=== PATIENT | male | born 1995 | race Caucasian/White ===

== ENCOUNTER 2017-11-14 19:52 | Emergency (ER) ==
[2017-11-14 19:53] VITALS: BMI 18.9
[2017-11-14] MEDS ORDERED: DILAUDID 0.5 MG/0.5 ML SYRINGE IVP STA (19:55)
[2017-11-14] MEDS ORDERED: ZOFRAN 4 MG/2 ML IVP STA (19:56)
--- NOTE | 2017-11-14 20:10 | ED.PDOC ---
General ED Provider: Dr. EVITA NO-ER Chief Complaint: Abdominal Pain Stated Complaint: im hurting--for one month Time Seen by Physician: 19:55 Mode of Arrival: Walk-In Information Source: Patient Exam Limitations: No limitations Primary Care Provider: MIKE RAMIREZ Nursing and Triage Documentation Reviewed and Agree: Yes Does patient meet sepsis criteria?: No System Inflammatory Response Syndrome: Not Applicable Sepsis Protocol: For patient's 13 years and over: Temp is 96.8 and below OR 101 and greater Pulse >90 BPM Resp >20/minute Acutely Altered Mental Status Are patient's symptoms suggestive of a new infection, such as: -Pneumonia -Skin, Soft Tissue -Endocarditis -UTI -Bone, Joint Infection -Implantable Device -Acute Abdominal Infection -Wound Infection -Meningitis -Blood Stream Catheter Infection -Unknown GI Complaint Exam - Abdominal Pain Complaint/Exam Onset: Gradual Duration: 4 weeks Symptoms Are: Still present Timing: Constant Initial Severity: Mild Current Severity: Mild Location of Pain: RUQ, RLQ Character: Reports: Dull, Aching, Cramping Aggravating: Reports: None Associated Signs and Symptoms: Reports: Nausea Abdominal Findings: Present: None Differential Diagnoses: Appendicitis, Bowel Obstruction, Constipation, Pancreatitis, GB Review of Systems - Review Of Systems Constitutional: Reports: No symptoms Eyes: Reports: No symptoms Ears, Nose, Mouth, Throat: Reports: No symptoms Respiratory: Reports: No symptoms Cardiac: Reports: No symptoms GI: Reports: Abdominal pain, Nausea : Reports: No symptoms Musculoskeletal: Reports: No symptoms Skin: Reports: No symptoms Neurological: Reports: No symptoms Endocrine: Reports: No symptoms Hematologic/Lymphatic: Reports: No symptoms All Other Systems: Reviewed and Negative Past Medical History - Past Medical History Previously Healthy: No Endocrine: Reports: None Cardiovascular: Reports: None Respiratory: Reports: None Hematological: Reports: None Gastrointestinal: Reports: None Genitourinary: Reports: None Neuro/Psych: Reports: None Musculoskeletal: Reports: Joint Pain Cancer: Reports: None Other Pertinent Past Medical History: compound fracture left wrist- fell into basement(foundation) - Surgical History General Surgical History: Reports: Orthopedic (left wrist fx with internal fixation) - Family History Family History: Reports: Unknown - Social History Smoking Status: Never smoker Hx Substance Use: No Alcohol Screening: None - Immunizations Tetanus Shot up to Date: Yes Physical Exam - Physical Exam Appearance: Well-appearing Pain Distress: Mild Eyes: [facility] ENT: Ears normal Neck: Supple Respiratory: Airway patent, Breath sounds clear, Breath sounds equal, Respirations nonlabored Cardiovascular: RRR, Pulses normal, No rub, No murmur GI/: Soft, No masses, Bowel sounds normal, No Organomegaly, Tender Musculoskeletal: Normal strength, ROM intact, No edema, No calf tenderness Skin: Warm Neurological: Sensation intact, Motor intact, Reflexes intact, Cranial nerves intact, Alert, Oriented Psychiatric: Affect appropriate, Mood appropriate, Anxious Interpretation - Radiology Interpretation Radiology Interpretation By: Radiologist Radiology Results: Negative Exam Interpreted: CT Scan Re-Evaluation - Re-Evaluation Time of Re-Evaluation: 21:41 Status: Improved Vital Signs Stable: Yes Pain Level: 0 Appearance: NAD Lungs: Clear Skin: Warm and Dry Neuro: Alert and Oriented X3 CV: RRR Critical Care Note - Critical Care Note Total Time (mins): 0 Course - Course Hematology/Chemistry: 11/14/17 20:15 11/14/17 20:15 Orders, Labs, Meds: Lab Review 11/14/17 11/14/17 11/14/17 19:55 20:15 20:15 WBC 6.44 RBC 5.12 Hgb 15.8 Hct 46.3 MCV 90.4 MCH 30.9 MCHC 34.1 RDW Coeff of Blaire 12.6 Plt Count 185 Immature Gran % (Auto) 0.2 Neut % (Auto) 39.8 Lymph % (Auto) 45.2 [place] % (Auto) 9.9 Eos % (Auto) 4.3 Baso % (Auto) 0.6 Immature Gran # (Auto) 0.0 Neut # (Auto) 2.6 Lymph # (Auto) 2.9 [place] # (Auto) 0.6 Eos # (Auto) 0.3 Baso # (Auto) 0.0 ESR 2 Sodium 141 Potassium 4.1 Chloride 106 Carbon Dioxide 27 Anion Gap 12.1 BUN 15 Creatinine 0.99 Estimated GFR (MDRD) 96.00 BUN/Creatinine Ratio 15.15 Glucose 107 H Calcium 10.2 Total Bilirubin 1.5 H AST 16 ALT 12 Alkaline Phosphatase 77 Total Protein 7.7 Albumin 4.6 Globulin 3.1 Albumin/Globulin Ratio 1.48 Amylase 70 Lipase 17 Urine Color Yellow Urine Clarity Clear Urine pH 7.5 Ur Specific [place] 1.020 Urine Protein Negative Urine Glucose (UA) Negative Urine Ketones Negative Urine Blood Negative Urine Nitrite Negative Urine Bilirubin Negative Urine Urobilinogen 0.2 Ur Leukocyte Esterase Negative Orders Category Date Time Status NPO REMINDER: IMAGING ONCE CARE 11/14/17 19:56 Completed IV [ED IV/MEDIPORT/POWERPORT] .ONCE EMERGENCY 11/14/17 19:55 Active AMYLASE Stat LAB 11/14/17 20:15 Completed CBC W/ AUTO DIFF Stat LAB 11/14/17 20:15 Completed COMPREHENSIVE METABOLIC PANEL Stat LAB 11/14/17 20:15 Completed ESR Stat LAB 11/14/17 20:15 Completed LIPASE Stat LAB 11/14/17 20:15 Completed URINALYSIS C & S IF INDICATED Stat LAB 11/14/17 19:55 Completed 0.9 % Sodium Chloride [Saline Flush] MEDS 11/14/17 19:55 Ordered 1 syr IVF PRN PRN Hydromorphone HCl [Dilaudid] MEDS 11/14/17 19:55 Discontinued 1 mg IVP ONCE STA Ondansetron HCl/Pf [Zofran 4 mg/2 ml] MEDS 11/14/17 19:56 Discontinued [address] ONCE [address]A CT ABDOMEN/PELVIS W/WO CONTRAS Stat RADS 11/14/17 19:56 Completed Medications Generic Name Dose Route Start Last Admin Trade Name Freq PRN Reason Stop Dose Admin Sodium Chloride 1 syr 11/14/17 19:55 11/14/17 20:45 Saline Flush IVF 1 syr PRN PRN Administration To flush IV Discontinued Medications Generic Name Dose Route Start Last Admin Trade Name Freq PRN Reason Stop Dose Admin Hydromorphone HCl 1 mg 11/14/17 19:55 11/14/17 20:39 Dilaudid IVP 11/14/17 19:56 1 mg ONCE STA Administration Ondansetron HCl 4 mg 11/14/17 19:56 11/14/17 20:38 Zofran 4 Mg/2 Ml IVP 11/14/17 19:57 4 mg ONCE STA Administration Vital Signs: Temp Pulse Resp BP Pulse Ox 11/14/17 19:55 98.1 F 76 20 117/72 99 Departure - Departure Time of Disposition: 21:41 Disposition: HOME SELF-CARE Discharge Problem: Abdominal pain Instructions: Abdominal Pain (ED) Condition: Good Pt referred to PMD for follow-up: Yes IPMP verified?: No Additional Instructions: librax q 6hrs prn pain #10---zofran 4mg q 4hrs prn #10 for nausea--talk to dr ramirez about gb xrays--low fat diet Allergies/Adverse Reactions: Allergies No Known Allergies Allergy (Verified 11/14/17 20:07) Home Medications: Ambulatory Orders Ibuprofen [Motrin] 600 mg PO Q6H PRN #30 tablet 07/13/15 Pantoprazole Sodium [Protonix] 40 mg PO DAILY 11/14/17 Disposition Discussed With: Patient, Family
[2017-11-14 20:17] VITALS: BP 117/72; TEMP 98.1
--- NOTE | 2017-11-14 21:36 | CT ---
EXAM: CT of the abdomen and pelvis with IV contrast and without IV contrast: History: Patient with history of abdominal pain COMPARISON: None available at the time of dictation Technique: CT of the abdomen and pelvis with IV contrast was performed with axial , sagital and rose nal reconstuctions were obtained and reviewed. FINDINGS: The visualized segments the appendix are without definitive evidence of inflammation or dilation iden tified. There is no hydronephrosis or hydroureter idenified. No lesions are identified in the kidneys, adrenals, liver, spleen or pancreas. The gallbladder is pr esent. No dilated bowel loops are identified. No focal fluid collections or pathologically enlarge d lymph nodes are identified in the abdomen or pelvis. Bone windows demonstrate no destructive osseous lesions are identified in the abdomen or pelvis. Limited evaluation of the lung bases appear clear. IMPRESSION: 1. No definitive inflammation or dilation is identified at the visualized segments ofthe appendix.
== END 2017-11-14 21:52 | disposition home or self-care (01) ==
LOC: ED 19:52
DX: R10.11 Right upper quadrant pain (principal); R10.31 Right lower quadrant pain
CPT/HCPCS: 36415; 80053; 81001; 82150; 83690; 85025; 85651; 96374; 96375; 99283

== ENCOUNTER 2018-06-05 15:43 | Outpatient (CLI) ==
--- NOTE | 2018-06-05 16:23 | DI ---
Exam: Three views of the right hand. Comparison: None available. Reason for exam: Right hand pain. FINDINGS: There is likely a healing fracture of the distal fourth metacarpal best seen on the obliqu e view. No other fracture or malalignment is seen. Impression: Likely healing fracture of the distal fourth metacarpal.
== END 2018-06-05 15:44 | disposition home or self-care (01) ==
LOC: RAD 15:43
PROVIDERS: ATTEND Family Medicine
DX: M79.641 Pain in right hand (principal); S60.221A Contusion of right hand, initial encounter